=== PATIENT | female | born 1960 | race Caucasian/White ===

== ENCOUNTER 2022-01-29 15:10 | Emergency (ER) | payer OTHER ==
[2022-01-29 15:52] LABS: Urine Blood 2+ (Negative); Urine Glucose Negative (Negative); Urine Protein 1+ (Negative); Urine Specific Gravity 1.025 (1.005-1.030); Urine pH 6.5 (5.0-7.0)
[2022-01-29 16:51] LABS: SARS-COV-2 RT PCR NEGATIVE (NEGATIVE)
--- NOTE | 2022-01-29 16:55 | ER ---
Nurse's Notes [facility] Name: Joanna Berry Age: 61 yrs Sex: Female : 1960 Arrival Date: 01/29/2022 Time: 15:15 Bed Treatment Private MD: Diagnosis: Influenza due to identified novel influenza A virus Presentation: 01/29 15:50 Chief complaint: Patient states: fever, body aches, diarrhea, cough, lack of appetite kb3 x9 days. Coronavirus screen: Vaccine status: Patient reports receiving the 2nd dose of the covid vaccine. Client denies travel out of the [place] in the last 14 days. Ebola Screen: Patient negative for fever greater than or equal to 101.5 degrees Fahrenheit, and additional compatible Ebola Virus Disease symptoms Patient denies exposure to infectious person. Patient denies travel to an Ebola-affected area in the 21 days before illness onset. Initial Sepsis Screen: Does the patient meet any 2 criteria? No. Patient's initial sepsis screen is negative. Does the patient have a suspected source of infection? No. Patient's initial sepsis screen is negative. Risk Assessment: Do you want to hurt yourself or someone else? Patient reports no desire to harm self or others. Onset of symptoms was January 20, 2022. 15:50 Method Of Arrival: Ambulatory kb3 15:50 Acuity: NATTY 4 kb3 Triage Assessment: 15:52 General: Appears in no apparent distress. Behavior is calm, cooperative. Pain: kb3 Complains of pain in head, chest, abdomen, right arm, left arm, right leg and left leg Pain does not radiate. Pain currently is 7 out of 10 on a pain scale. Quality of pain is described as aching. Respiratory: Reports cough that is Breath sounds are clear. Historical: - Allergies: 15:52 No Known Allergies; kb3 - Home Meds: 15:52 None [Active]; kb3 - PMHx: 15:52 None; kb3 - PSHx: 15:52 section; kb3 - Immunization history:: Adult Immunizations up to date, Client reports receiving the 2nd dose of the Covid vaccine, Last tetanus immunization: up to date. - Social history:: Smoking status: Patient denies any tobacco usage or history of. Screenin:09 Abuse screen: Denies threats or abuse. Denies injuries from another. Nutritional kb3 screening: No deficits noted. Tuberculosis screening: No symptoms or risk factors identified. Fall Risk None identified. Assessment: 17:09 Reassessment: Patient appears in no apparent distress at this time. No changes from kb3 previously documented assessment. General: Appears in no apparent distress. comfortable, Behavior is calm, cooperative. Cardiovascular: Patient's skin is warm and dry. Respiratory: Reports cough that is Airway is patent. Vital Signs: 15:50 BP 146 / 96; Pulse 111; Resp 20; Temp 98.7; Pulse Ox 100% ; Weight 50.8 kg; Height 5 kb3 ft. 2 in. (157.48 cm); Pain 7/10; 17:15 BP 138 / 85; Pulse 98; Resp 20; Pulse Ox 99% ; kb3 15:50 Body Mass Index 20.48 (50.80 kg, 157.48 cm) kb3 ED Course: 15:15 Patient arrived in ED. jl7 15:26 Pat[facility] Bliss [facility]-C [facility]. kb 15:26 Foreign Martinez DO is Attending Physician. kb 15:52 Triage completed. kb3 15:52 Arm band placed on. kb3 15:59 COVID-19/FLU A+B Sent. mm9 17:09 Patient has correct armband on for positive identification. kb3 17:09 No provider procedures requiring assistance completed. Patient did not have IV access kb3 during this emergency room visit. Administered Medications: No medications were administered Medication: 17:09 VIS not applicable for this client. kb3 Outcome: 16:55 Discharge ordered by MD. kb 17:19 Discharged to home ambulatory. kb3 17:19 Condition: stable 17:19 Discharge instructions given to patient, family, Instructed on discharge instructions, follow up and referral plans. medication usage, Demonstrated understanding of instructions, follow-up care, medications. 17:19 Patient left the ED. kb3 Signatures: Patty Bliss FNP-C FNP-Ckb Leal, Jahala, RN RN jl7 Kristi Mitchell RN RN kb3 Leia De Leon mm9
--- NOTE | 2022-01-29 16:55 | EDPHYS ---
Physician Documentation [facility] Name: Joanna Berry Age: 61 yrs Sex: Female : 1960 Arrival Date: 01/29/2022 Time: 15:15 Bed Treatment Private MD: ED Physician Foreign Martinez HPI: 01/29 18:01 This 61 yrs old Female presents to ER via Ambulatory with complaints of Cough, kb Congestion, Diarrhea, Fever, General Weakness. 18:01 The patient or guardian reports cough, that is intermittent, described as mild, flu kb symptoms, low-grade fever, myalgias, no appetite. Onset: The symptoms/episode began/occurred 9 day(s) ago. Severity of symptoms: At their worst the symptoms were moderate, in the emergency department the symptoms are unchanged. Modifying factors: The symptoms are alleviated by nothing, the symptoms are aggravated by nothing. Associated signs and symptoms: Pertinent positives: diarrhea, fever, rhinorrhea. The patient has not experienced similar symptoms in the past. The patient has not recently seen a physician. Historical: - Allergies: 15:52 No Known Allergies; kb3 - Home Meds: 15:52 None [Active]; kb3 - PMHx: 15:52 None; kb3 - PSHx: 15:52 section; kb3 - Immunization history:: Adult Immunizations up to date, Client reports receiving the 2nd dose of the Covid vaccine, Last tetanus immunization: up to date. - Social history:: Smoking status: Patient denies any tobacco usage or history of. ROS: 18:00 Cardiovascular: Negative for chest pain, palpitations, and edema. kb 18:00 Constitutional: Positive for body aches, chills, fatigue, fever, malaise. 18:00 ENT: Positive for rhinorrhea, sinus congestion. 18:00 Respiratory: Positive for cough, Negative for dyspnea on exertion, hemoptysis, orthopnea, pleurisy, shortness of breath, sputum production, wheezing. 18:00 Abdomen/GI: Positive for diarrhea, Negative for abdominal pain, nausea and vomiting. 18:00 All other systems are negative. Exam: 18:00 Constitutional: This is a well developed, well nourished patient who is awake, alert, kb and in no acute distress. Head/Face: Normocephalic, atraumatic. ENT: Moist Mucous membranes Cardiovascular: Regular rate and rhythm with a normal S1 and S2. No gallops, murmurs, or rubs. No pulse deficits. Respiratory: Respirations even and unlabored. No increased work of breathing. Talking in full sentences Abdomen/GI: Soft, non-tender. No distention Skin: Warm, dry with normal turgor. Normal color. MS/ Extremity: Pulses equal, no cyanosis. Neurovascular intact. Full, normal range of motion. Neuro: Awake and alert, GCS 15, oriented to person, place, time, and situation. Moves all extremities. Normal gait. Psych: Awake, alert, with orientation to person, place and time. Behavior, mood, and affect are within normal limits. Vital Signs: 15:50 BP 146 / 96; Pulse 111; Resp 20; Temp 98.7; Pulse Ox 100% ; Weight 50.8 kg; Height 5 kb3 ft. 2 in. (157.48 cm); Pain 7/10; 17:15 BP 138 / 85; Pulse 98; Resp 20; Pulse Ox 99% ; kb3 15:50 Body Mass Index 20.48 (50.80 kg, 157.48 cm) kb3 MDM: 15:26 Patient medically screened. kb 17:59 Data reviewed: vital signs, nurses notes. Data interpreted: Pulse oximetry: on room air kb is 99 %. Interpretation: normal. Counseling: I had a detailed discussion with the patient and/or guardian regarding: the historical points, exam findings, and any diagnostic results supporting the discharge/admit diagnosis, lab results, the need for outpatient follow up, a family practitioner, to return to the emergency department if symptoms worsen or persist or if there are any questions or concerns that arise at home. ED course: Nontoxic in appearance. Tolerating po intake. 01/29 15:40 Order name: COVID-19/FLU A+B; Complete Time: 16:54 kb3 01/29 15:52 Order name: Urine Dipstick-Ancillary; Complete Time: 15:55 EDMS 01/29 15:40 Order name: Urine Dipstick-Ancillary (obtain specimen); Complete Time: 15:59 kb3 Administered Medications: No medications were administered Disposition: 19:17 Co-signature as Attending Physician, Foreign Martinez DO I was immediately available on-site ms3 in the Emergency Department for consultation in the care of the patient. Disposition Summary: 01/29/22 16:55 Discharge Ordered Location: Home kb Condition: Stable kb Diagnosis - Influenza due to identified novel influenza A virus kb Followup: kb - With: Emergency Department - When: As needed - Reason: Worsening of condition Followup: kb - With: Private Physician - When: 2 - 3 days - Reason: Recheck today's complaints, Continuance of care, Re-evaluation by your physician Discharge Instructions: - Discharge Summary Sheet kb - Influenza, Adult, [id number] kb Forms: - Medication Reconciliation Form kb - Thank You Letter kb - Antibiotic Education kb - Prescription Opioid Use kb - Work release form kb3 Signatures: Dispatcher [employer] EDMS Patty Bliss, CARLOSC KARISSA-Foreign Rockwell DO DO ms3 Kristi Mitchell, RN RN kb3
[2022-01-29 17:23] VITALS: TEMP 98.7
[2022-01-29 17:24] VITALS: BP 138/85; O2SAT 99
== END 2022-01-29 17:19 | disposition home or self-care (01) ==
LOC: ER 15:10
DX: J10.1 Influenza due to other identified influenza virus with other respiratory manifestations (principal); Z20.822 Contact with and (suspected) exposure to COVID-19
CPT/HCPCS: 81003; 0240U; 99283

== ENCOUNTER 2022-02-17 12:00 | Emergency (ER) | payer OTHER ==
[2022-02-17 13:53] LABS: SARS-COV-2 RT PCR NEGATIVE (NEGATIVE)
--- NOTE | 2022-02-17 14:00 | RAD REPORT ---
EXAM DESCRIPTION: RAD - Chest Single View - 02/17/2022 1:42 pm CLINICAL HISTORY: cough, fever Chest pain. COMPARISON: Chest Pa And Lat (2 Views) dated 12/10/2015 FINDINGS: Portable technique limits examination quality. Emphysematous changes are present. Reticular opacity is present in the left mid lung likely infiltrat e/developing pneumonia. The heart is normal in size. No displaced fractures. IMPRESSION: Left mid lung reticular opacity is noted likely representing developing pneumonia.
[2022-02-17] MEDS ORDERED: LIDOCAINE 1% MPF 2 ML AMPULE ONE (14:49)
[2022-02-17] MEDS ORDERED: CEFTRIAXONE 1000 MG/VIAL ONE (14:49)
--- NOTE | 2022-02-17 14:58 | EDPHYS ---
Physician Documentation [facility] Name: Joanna Berry Age: 61 yrs Sex: Female : 1960 Arrival Date: 02/17/2022 Time: 12:24 Bed 10 Private MD: ED Physician Silvano Ponce HPI: 02/17 12:33 This 61 yrs old Female presents to ER via Ambulatory with complaints of Flu Symptoms. jmm 12:33 The patient or guardian reports cough. Onset: The symptoms/episode began/occurred jmm gradually, 2 day(s) ago. This is a 61-year-old female with no known chronic medical conditions presents emerged part with complaints of cough beginning approximately 2 days ago. Patient was recently diagnosed with influenza approximately 3 weeks ago. Patient is concerned she may have developed influenza again. Patient is able to tolerate p.o.. Historical: - Allergies: 13:05 No Known Allergies; kb3 - Home Meds: 13:05 None [Active]; kb3 - PMHx: 13:05 None; kb3 - PSHx: 13:05 section; kb3 - Immunization history:: Adult Immunizations up to date, Client reports receiving the 2nd dose of the Covid vaccine. - Social history:: Smoking status: Patient denies any tobacco usage or history of. ROS: 12:33 Constitutional: Negative for fever, chills, and weight loss, Cardiovascular: Negative jmm for chest pain, palpitations, and edema. 12:33 Respiratory: Positive for cough. 12:33 All other systems are negative. Exam: 12:33 Constitutional: This is a well developed, well nourished patient who is awake, alert, jmm and in no acute distress. Head/Face: atraumatic. Eyes: EOMI, no conjunctival erythema appreciated ENT: Moist Mucus Membranes Neck: Trachea midline, Supple Chest/axilla: Normal chest wall appearance and motion. Cardiovascular: Regular rate and rhythm. No edema appreciated Respiratory: Normal respirations, no respiratory distress appreciated Abdomen/GI: Non distended Back: Normal ROM Skin: General appearance color normal MS/ Extremity: Moves all extremities, no obvious deformities appreciated, no edema noted to the lower extremities Neuro: Awake and alert Psych: Behavior is normal, Mood is normal, Patient is cooperative and pleasant Vital Signs: 13:03 BP 125 / 87; Pulse 94; Resp 20; Temp 97.7; Pulse Ox 98% ; Weight 49.9 kg; Height 5 ft. kb3 2 in. (157.48 cm); Pain 0/10; 13:03 Body Mass Index 20.12 (49.90 kg, 157.48 cm) kb3 MDM: 12:33 Patient medically screened. [facility] 14:56 Data reviewed: vital signs, nurses notes. Counseling: I had a detailed discussion with [facility] the patient and/or guardian regarding: the historical points, exam findings, and any diagnostic results supporting the discharge/admit diagnosis, radiology results, the need for outpatient follow up, to return to the emergency department if symptoms worsen or persist or if there are any questions or concerns that arise at home. 02/17 12:33 Order name: COVID-19/FLU A+B; Complete Time: 13:53 [facility] 02/17 12:33 Order name: Chest Single View XRAY; Complete Time: 14:01 [facility] Administered Medications: 14:52 Drug: Rocephin (cefTRIAXone) 1 grams Route: IM; Site: right ventrogluteal; kb3 15:10 Follow up: Response: No adverse reaction jl7 Disposition: 17:07 Co-signature as Attending Physician, Silvano Ponce MD I agree with the assessment and rt plan of care. Disposition Summary: 02/17/22 14:57 Discharge Ordered Location: Home [facility] Condition: Stable [facility] Diagnosis - Pneumonia [facility] Followup: [facility] - With: Private Physician - When: 2 - 3 days - Reason: Recheck today's complaints, Continuance of care, Re-evaluation by your physician Discharge Instructions: - Discharge Summary Sheet [facility] - Community-Acquired Pneumonia, Adult [facility] Forms: - Medication Reconciliation Form [facility] - Thank You Letter [facility] - Antibiotic Education [facility] - Prescription Opioid Use [facility] - Work release form jl7 Prescriptions: - cefdinir 300 mg Oral capsule - take 1 capsule by ORAL route every 12 hours; 20 capsule; Refills: 0, Product [facility] Selection Permitted - Zithromax Z-Marlo 250 mg Oral Tablet - take 1 tablet by ORAL route as directed for 5 days Day 1 - take two (2) tablets [facility] one time. Day 2, 3, 4 , 5 take one (1) tablet once daily.; 6 tablet; Refills: 0, Product Selection Permitted Signatures: Dispatcher [employer] Eric Ch PA PA jmm Bradberry, Kelly, RN RN kb3 Silvano Ponce MD MD rt Samantha Iqbal RN jl7
--- NOTE | 2022-02-17 14:58 | ER ---
Nurse's Notes [facility] Name: Joanna Berry Age: 61 yrs Sex: Female : 1960 Arrival Date: 02/17/2022 Time: 12:24 Bed 10 Private MD: Diagnosis: Pneumonia Presentation: 02/17 13:03 Chief complaint: Patient states: diagnosed with flu 3 weeks ago and felt better until 2 kb3 days ago when the cough and fatigue returned. Coronavirus screen: Vaccine status: Patient reports receiving the 2nd dose of the covid vaccine. Client denies travel out of the [place] in the last 14 days. Ebola Screen: Patient negative for fever greater than or equal to 101.5 degrees Fahrenheit, and additional compatible Ebola Virus Disease symptoms Patient denies exposure to infectious person. Patient denies travel to an Ebola-affected area in the 21 days before illness onset. Initial Sepsis Screen: Does the patient meet any 2 criteria? No. Patient's initial sepsis screen is negative. Does the patient have a suspected source of infection? No. Patient's initial sepsis screen is negative. Risk Assessment: Do you want to hurt yourself or someone else? Patient reports no desire to harm self or others. Onset of symptoms was February 15, 2022. 13:03 Method Of Arrival: Ambulatory kb3 13:03 Acuity: NATTY 4 kb3 Triage Assessment: 13:05 General: Appears in no apparent distress. Behavior is calm, cooperative. Pain: Denies kb3 pain. Historical: - Allergies: 13:05 No Known Allergies; kb3 - Home Meds: 13:05 None [Active]; kb3 - PMHx: 13:05 None; kb3 - PSHx: 13:05 section; kb3 - Immunization history:: Adult Immunizations up to date, Client reports receiving the 2nd dose of the Covid vaccine. - Social history:: Smoking status: Patient denies any tobacco usage or history of. Screenin:15 Abuse screen:. Nutritional screening: No deficits noted. Tuberculosis screening: No kb3 symptoms or risk factors identified. Fall Risk No fall in past 12 months (0 pts). No secondary diagnosis (0 pts). No IV (0 pts). Ambulatory Aid- None/Bed Rest/Nurse Assist (0 pts). Gait- Normal/Bed Rest/Wheelchair (0 pts) Mental Status- Oriented to own ability (0 pts). Total Schneider Fall Scale indicates No Risk (0-24 pts). 15:00 [facility] ED Fall Risk Assessment (Adult) History of falling in the last 3 months, jl7 including since admission No falls in past 3 months (0 pts) Confusion or Disorientation No (0 pts) Intoxicated or Sedated No (0 pts) Impaired Gait No (0 pts) Mobility Assist Device Used No (0 pt) Altered Elimination No (0 pt) Score/Fall Risk Level 0 - 2 = Low Risk Oriented to surroundings, Maintained a safe environment, Educated pt \T\ family on fall prevention, incl call for assistance when getting out of bed. Humpty Dumpty Scale Fall Assessment Tool (age< 18yrs) Gender Female (1 pt). Assessment: 13:15 General: see triage note. kb3 13:15 Respiratory: Reports cough that is Airway is patent Respiratory effort is even, kb3 unlabored, Breath sounds are clear. 14:50 General: Pt to room 10 for medication and discharge. kb3 Vital Signs: 13:03 BP 125 / 87; Pulse 94; Resp 20; Temp 97.7; Pulse Ox 98% ; Weight 49.9 kg; Height 5 ft. kb3 2 in. (157.48 cm); Pain 0/10; 13:03 Body Mass Index 20.12 (49.90 kg, 157.48 cm) kb3 ED Course: 12:24 Patient arrived in ED. rg4 12:26 Eric Hoskins PA [facility] [place] 12:26 Silvano Ponce MD is Attending Physician. [facility] [place] 13:05 Triage completed. kb3 13:05 Arm band placed on right wrist. kb3 13:06 COVID-19/FLU A+B Sent. kb3 13:15 Patient has correct armband on for positive identification. kb3 13:15 No provider procedures requiring assistance completed. Patient did not have IV access kb3 during this emergency room visit. 13:43 Chest Single View XRAY In Process Unspecified. EDMS 14:59 Kristi Mitchell, RN is Primary Nurse. kb3 Administered Medications: 14:52 Drug: Rocephin (cefTRIAXone) 1 grams Route: IM; Site: right ventrogluteal; kb3 15:10 Follow up: Response: No adverse reaction jl7 Medication: 13:15 VIS not applicable for this client. kb3 Outcome: 14:57 Discharge ordered by . annmarie 15:10 Discharged to home ambulatory. justin 15:10 Condition: stable 15:10 Discharge instructions given to patient, family, Instructed on discharge instructions, follow up and referral plans. medication usage, Demonstrated understanding of instructions, follow-up care, medications, Prescriptions given X 2. 15:11 Patient left the ED. jl7 Signatures: Dispatcher [employer] EDMS Eric Hoskins PA PA jmm Garcia, Rubi rg4 Samantha Iqbal, RN RN jl7 Kristi Mitchell, RN RN kb3
[2022-02-17 15:17] VITALS: BP 125/87; TEMP 97.7; O2SAT 98
== END 2022-02-17 15:11 | disposition home or self-care (01) ==
LOC: ER 12:00
DX: J18.9 Pneumonia, unspecified organism (principal); Z20.822 Contact with and (suspected) exposure to COVID-19
CPT/HCPCS: 0240U; 71045; 96372; 99284

== ENCOUNTER 2022-05-06 23:42 | Inpatient (IN) | payer OTHER ==
[2022-05-07] MEDS ORDERED: ALBUTEROL 2.5 MG/3 ML NEB SOL ONE (00:07)
[2022-05-07] MEDS ORDERED: METHYLPREDNISOLONE 125 MG INJ ONE (00:07)
[2022-05-07] MEDS ORDERED: IPRATROPIUM BROM 0.5MG/2.5ML ONE (00:07)
[2022-05-07 00:09] LABS: Absolute Lymphocytes (CBC) 2.2 K/uL (0.7-4.9); Hematocrit 38.9 % (36.0-45.0); Lymphocytes % 26.4 % (15.3-44.8); MCV 80.6 fL (80-100); MPV 8.5 fL (7.6-11.3); RBC Red Blood Cell Count 4.83 M/uL (3.86-4.86)
[2022-05-07 00:17] LABS: Protime INR 1.18
[2022-05-07] MEDS ORDERED: MORPHINE 2 MG/ML SYR ONE (00:25)
[2022-05-07] MEDS ORDERED: CEFTRIAXONE 1000 MG/VIAL ONE (00:25)
[2022-05-07] MEDS ORDERED: ACETAMINOPHEN 500 MG TAB ONE (00:25)
[2022-05-07] MEDS ORDERED: AZITHROMYCIN 500 MG INJ IVPB ONE (00:25)
[2022-05-07] MEDS ORDERED: NA CHLORIDE 0.9% 500 ML ONE (00:26)
[2022-05-07] MEDS ORDERED: NA CHLORIDE 0.9% 1,000 ML ONE (00:26)
[2022-05-07] MEDS ORDERED: NA CHLORIDE 0.9% 250 ML ONE ×3 (00:26→09:33)
[2022-05-07] MEDS ORDERED: NA CHLORIDE 0.9% 50 ML ONE (00:26)
[2022-05-07] MEDS ORDERED: ONDANSETRON 4 MG/2 ML VIAL ONE (00:26)
[2022-05-07 00:28] LABS: Albumin 3.7 g/dL (3.4-5.0); Bilirubin Total 0.8 mg/dL (0.2-1.0); Potassium 3.4 mmol/L (3.5-5.1); Protein, Total 7.7 g/dL (6.4-8.2)
[2022-05-07 00:56] LABS: Arterial Blood Carboxyhemoglob 0.5 % (0-1.5); Blood Gas Oxyhemoglobin 91.2 % (94-97)
[2022-05-07 01:29] LABS: SARS-COV-2 RT PCR NEGATIVE (NEGATIVE)
[2022-05-07] MEDS ORDERED: FUROSEMIDE 40 MG/4 ML VIAL ONE ×2 (01:44→08:32)
[2022-05-07] MEDS ORDERED: FUROSEMIDE 20 MG/ 2ML VIAL ONE (01:44)
[2022-05-07 02:09] LABS: Urine Blood 2+ (Negative); Urine Glucose Negative (Negative); Urine Protein 1+ (Negative); Urine Specific Gravity 1.015 (1.005-1.030); Urine pH 5.5 (5.0-7.0)
[2022-05-07 02:23] LABS: Urine Bacteria <20 /HPF (<20); Urine Mucus Slight /HPF (None Seen)
--- NOTE | 2022-05-07 02:42 | P.HP ---
Certification for Inpatient Patient admitted to: Inpatient With expected LOS: >2 Midnights Patient will require the following post-hospital care: None Practitioner: I am a practitioner with admitting privileges, knowledge of patient current condition, hospital course, and medical plan of care. Services: Services provided to patient in accordance with Admission requirements found in Title 42 Section 412.3 of the Code of Federal Regulations Patient History Date of Service: 05/07/22 Reason for admission: New onset CHF History of Present Illness: 61-year-old female with no significant past medical history presents to the emergency department for shortness of breath. She is found to be 85% on room air upon arrival to the emergency department. She reports increasing dyspnea over the course the last 1 month with associated orthopnea, dyspnea on exertion. She was evaluated in the emergency department her labs were significant for BNP 6353 potassium 3.4 lactic acid 1.3 mild elevations in AST, ALT, alk phos procalcitonin less than 0.05 ABG performed pH 7.3 PCO2 40.3 PO2 81.1 HCO3 19.4 CTA PE protocol was performed which revealed bilateral pleural effusions, pulmonary edema, cardiomegaly suggestive of acute CHF. Patient with oxygen requirement currently on nasal cannula to maintain saturations greater than 90% will admit for new onset CHF Allergies No Known Allergies Allergy (Unverified 12/10/15 17:44) - Past Medical/Surgical History -: None -: Psychosocial/ Personal History: Patient lives at home with her - Family History Father -: Diabetes - Social History Smoking Status: Former smoker Alcohol use: No CD- Drugs: No Caffeine use: Yes Place of Residence: Home Review of Systems 10-point ROS is otherwise unremarkable Respiratory: Shortness of Breath, SOB with Excertion Cardiovascular: Orthopnea Physical Examination - Physical Exam General: Alert, In no apparent distress, Oriented x3 HEENT: Atraumatic, PERRLA, Mucous membr. moist/pink, EOMI, Sclerae nonicteric Neck: Supple, 2+ carotid pulse no bruit, No LAD, Without JVD or thyroid abnormality Respiratory: Diminished, Crackles/rales Cardiovascular: Regular rate/rhythm, Normal S1 S2 Gastrointestinal: Normal bowel sounds, No tenderness Musculoskeletal: No tenderness Integumentary: No rashes Neurological: Normal gait, Normal speech, Normal strength at 5/5 x4 extr, Normal tone, Normal affect Lymphatics: No axilla or inguinal lymphadenopathy - Studies Laboratory Data (last 24 hrs) 05/06/22 23:58: PT 13.0 H, INR 1.18, APTT 29.3 05/06/22 23:58: Sodium 138, Potassium 3.4 L, BUN 14, Creatinine 1.00, Glucose 153 H, Total Bilirubin 0.8, AST 173 H, ALT 106 H, Alkaline Phosphatase 135 H 05/06/22 23:58: WBC 8.20, Hgb 12.3, Hct 38.9, Plt Count 322 Assessment and Plan - Plan Assessment: Acute hypoxic respiratory failure secondary to new onset CHFunknown EF Plan: Acute hypoxic respiratory failure secondary to new onset CHFunknown EF Continue IV diuresis with Lasix. Echocardiogram ordered, cardiology consulted. Beta-francesca, aspirin, statin ordered. Continue supplemental oxygen as needed, continue to wean to room air. Appreciate further input from cardiology. DVT PPX: Lovenox Code status: Full Discharge Plan: Home Plan to discharge in: 72 Hours - Advance Directives Does patient have a Living Will: No Does patient have a Durable POA for Healthcare: No - Code Status/Comfort Care Code Status Assessed: Yes (Full code) Critical Care: No Time Spent Managing Pts Care (In Minutes): 70
--- NOTE | 2022-05-07 03:11 | EDPHYS ---
Physician Documentation [facility] Name: Joanna Berry Age: 61 yrs Sex: Female : 1960 Arrival Date: 05/06/2022 Time: 23:44 Bed 7 Private MD: ED Physician Clark Ovalle HPI: 05/06 23:52 This 61 yrs old Female presents to ER via EMS with complaints of shortness of breath. sp4 23:52 61-year-old female with a history of emphysema and extensive tobacco use presents with sp4 EMS for acute worsening of shortness of breath, patient states her dyspnea has been progressive over the past 2 weeks at home associated with nonproductive cough and diaphoresis. Patient states that she had no fever or vomiting. Historical: - Allergies: 23:47 No Known Allergies; mb9 - Home Meds: 23:47 None [Active]; mb9 - PMHx: 23:47 None; mb9 - PSHx: 23:47 section; mb9 - Immunization history:: Adult Immunizations up to date. - Social history:: Smoking status: Patient denies any tobacco usage or history of. - Family history:: not pertinent. - Hospitalizations: : No recent hospitalization is reported. ROS: 05/07 02:59 Constitutional: Negative for fever, chills, and weight loss, positive for generalized sp4 weakness and fatigue also diaphoresis Eyes: Negative for injury, pain, redness, and discharge, ENT: Negative for injury, pain, and discharge, Neck: Negative for injury, pain, and swelling, Cardiovascular: Negative for chest pain, palpitations, and edema, positive for dyspnea on exertion Respiratory: Negative fo wheezing, and pleuritic chest pain, positive for shortness of breath, dyspnea on exertion, orthopnea, nonproductive cough Abdomen/GI: Negative for abdominal pain, nausea, vomiting, diarrhea, and constipation, Back: Negative for injury and pain, : Negative for injury, bleeding, discharge, and swelling, MS/Extremity: Negative for injury and deformity, Skin: Negative for injury, rash, and discoloration, Neuro: Negative for headache, weakness, numbness, tingling, and seizure, Psych: Negative for depression, anxiety, suicide ideation, homicidal ideation, and hallucinations, Allergy/Immunology: Negative for hives, rash, and allergies, Endocrine: Negative for neck swelling, polydipsia, polyuria, polyphagia, and marked weight changes, Hematologic/Lymphatic: Negative for swollen nodes, abnormal bleeding, and unusual bruising. Exam: 02:59 Constitutional: This is a well developed, frail thin female in moderate to severe sp4 distress with associated dyspnea, tachypnea, mild diaphoresis, mild to moderate respiratory distress. Patient is speaking in short sentences only Head/Face: Normocephalic, atraumatic. Eyes: Pupils equal round and reactive to light, extra-ocular motions intact. Lids and lashes normal. Conjunctiva and sclera are non-icteric and not injected. Cornea within normal limits. Periorbital areas with no swelling, redness, or edema. ENT: Nares patent. No nasal discharge, no septal abnormalities noted. Tympanic membranes are normal and external auditory canals are clear. Oropharynx with no redness, swelling, or masses, exudates, or evidence of obstruction, uvula midline. Mucous membranes moist. Neck: Trachea midline, no thyromegaly or masses palpated, and no cervical lymphadenopathy. Supple, full range of motion without nuchal rigidity, or vertebral point tenderness. No Meningismus. There is jugular venous distention Chest/axilla: Normal chest wall appearance and motion. Nontender with no deformity. No lesions are appreciated. Cardiovascular: Regular rhythm with a normal S1 and S2. No gallops, murmurs, or rubs. Normal PMI, No pulse deficits. Positive JVD, rapid tachycardia at the rate of 150, equal full peripheral pulses Respiratory: Lungs have equal breath sounds bilaterally, moderate to severe respiratory distress, bilateral crackles, decreased breath sounds bilateral bases, dyspnea, increased respiratory effort, retractions, and accessory muscle use. Abdomen/GI: Soft, non-tender, with normal bowel sounds. No distension or tympany. No guarding or rebound. No evidence of tenderness throughout. Back: No spinal tenderness. No costovertebral tenderness. Full range of motion. Skin: Warm, dry with normal turgor. Normal color with no rashes, no lesions, and no evidence of cellulitis. MS/ Extremity: Pulses equal, no cyanosis. Neurovascular intact. Full, normal range of motion. Neuro: Awake and alert, GCS 15, oriented to person, place, time, and situation. Cranial nerves II-XII grossly intact. Motor strength 5/5 in all extremities. Sensory grossly intact. Cerebellar exam normal. Normal gait. Psych: Awake, alert, with orientation to person, place and time. Behavior, mood, and affect are within normal limits. 02:59 ECG was reviewed by the Attending Physician. There is sinus tachycardia at the rate of sp4 112 and left atrial enlargement also left bundle branch block negative RI by Sgarbossa criteria appropriately discordant complexes Vital Signs: 05/06 23:44 BP 157 / 105; Pulse 131; Resp 33; Temp 97.4(O); Pulse Ox 85% on R/A; Weight 54.43 kg; mb9 Height 5 ft. 1 in. (154.94 cm); Pain 0/10; 23:49 Pulse Ox 96% on 3 lpm NC; mb9 03 00:47 BP 138 / 97; Pulse 123; Resp 28 S; Pulse Ox 97% on 4 lpm NC; as6 02:16 BP 149 / 99; Pulse 116; Resp 19; Pulse Ox 91% on 4 lpm NC; kd3 05/06 23:44 Body Mass Index 22.67 (54.43 kg, 154.94 cm) mb9 MDM: 00:08 Patient medically screened. sp4 02:59 Differential Diagnosis sepsis, flu, COPD, emphysema, congestive heart failure, sp4 pulmonary effusion, acute RI,. Data reviewed: vital signs, nurses notes, EMS record, lab test result(s), cardiac enzymes, CBC, electrolytes, hepatic panel, urinalysis, EKG, radiologic studies, CT scan. ED course: 61-year-old female with a history of prolonged smoking presents with worsening shortness of breath and nonproductive cough also tachycardia and rapid heart rate, patient states she has been getting diaphoretic and that she is not on home oxygen. Patient's EKG revealed left bundle branch block without signs of acute RI patient's work-up revealed unremarkable troponin, CT chest revealed no pulmonary embolus, also revealed cardiomegaly, moderate-sized bilateral pleural effusion and multifocal patchy infiltrates in the perihilar distribution indicative of CHF, patient at this time warrants admission for heart failure management and cardiology consult. 05/06 23:48 Order name: COVID-19/FLU A+B/RSV la1 05/06 23:55 Order name: Blood Culture Adult (2) sp4 05/06 23:55 Order name: CBC with Diff sp4 05/06 23:55 Order name: CMP sp4 05/06 23:55 Order name: Lactate w/ 2H reflex if indic. sp4 05/06 23:55 Order name: Protime (+inr) sp4 05/06 23:55 Order name: Ptt, Activated sp4 05/06 23:55 Order name: Urine Microscopic Only 4 05/06 23:55 Order name: ABG 4 05/06 23:55 Order name: EKG; Complete Time: 23:56 sp4 05/06 23:55 Order name: Accucheck; Complete Time: 00:19 sp4 05/06 23:55 Order name: Cardiac monitoring; Complete Time: 00:09 4 05/06 23:55 Order name: EKG - Nurse/Tech; Complete Time: 00:19 sp4 05/06 23:55 Order name: IV Saline Lock - Large Bore; Complete Time: 00:11 sp4 05/06 23:55 Order name: Labs collected and sent; Complete Time: 00:11 4 05/06 23:55 Order name: O2 Per Protocol; Complete Time: 00:09 sp4 05/06 23:55 Order name: O2 Sat Monitoring; Complete Time: 00:09 4 05/06 23:55 Order name: Vital Signs; Complete Time: 00:09 4 05/06 23:56 Order name: CT Chest For PE Angio 4 05/06 23:57 Order name: Procalcitonin 4 05/07 00:11 Order name: CBC with Automated Diff; Complete Time: 00:21 EDMS 05/07 00:17 Order name: Protime (+INR); Complete Time: 00:21 EDMS 05/07 00:17 Order name: PTT, Activated Partial Thromb; Complete Time: 00:21 EDMS 05/07 00:29 Order name: Comprehensive Metabolic Panel; Complete Time: 00:33 EDMS 05/07 00:29 Order name: Lactate w/ 2H reflex if indic.; Complete Time: 00:33 EDMS 05/07 00:56 Order name: BNP la1 05/07 01:05 Order name: ABG Arterial Blood Gas; Complete Time: 01:19 EDMS 05/07 01:16 Order name: Troponin High Sensitivity la1 05/07 01:29 Order name: COVID-19/FLU A+B/RSV; Complete Time: 01:34 EDMS 05/07 01:43 Order name: Procalcitonin; Complete Time: 03:11 EDMS 05/07 01:56 Order name: NT PRO-BNP; Complete Time: 03:11 EDMS 05/07 01:58 Order name: Troponin High Sensitivity; Complete Time: 03:11 EDMS 05/07 02:09 Order name: Urine Dipstick-Ancillary; Complete Time: 03:11 EDMS 05/07 02:23 Order name: Urine Microscopic Only; Complete Time: 03:11 EDMS 05/07 05:16 Order name: CBC with Automated Diff EDMS 05/07 05:29 Order name: Basic Metabolic Panel EDMS 05/07 05:29 Order name: Troponin High Sensitivity EDMS 05/07 11:35 Order name: Troponin High Sensitivity EDMS EC:59 Rate is 112 beats/min. Rhythm is regular, Sinus tachycardia. QRS [place] is Normal. sp4 Interpreted by me. Administered Medications: 01:10 Discontinued: NS 0.9% (30 ml/kg) 30 ml/kg IV at bolus once; Sepsis Protocol as6 00:03 CANCELLED (Duplicate Order): SOLU-Medrol (methylPREDNISolone sodium succinate) 125 mg sp4 IM once 00:10 Drug: SOLU-Medrol (methylPrednisoLONE) 125 mg Route: IVP; Site: right forearm; mb9 06:54 Follow up: Response: No adverse reaction as6 00:11 Drug: DuoNeb (albuterol 2.5 mg, ipratropium 0.5 mg) (3:1) (2.5 mg - 0.5 mg) 6 ml Route: mb9 Nebulizer; 06:55 Follow up: Response: No adverse reaction as6 00:30 Drug: Acetaminophen 1000 mg Route: PO; as6 06:56 Follow up: Response: No adverse reaction as6 00:30 Drug: NS 0.9% (30 ml/kg) 30 ml/kg Route: IV; Rate: bolus; Site: right forearm; as6 01:10 Follow up: Response: No adverse reaction; IV Status: Order to discontinue infusion; IV as6 Intake: 500ml 01:12 Follow up: IV Status: Order to discontinue infusion; IV Intake: 400ml kd3 00:40 Drug: Rocephin (cefTRIAXone) 1 grams Route: IV; Rate: bolus; Site: right forearm; as6 06:56 Follow up: Response: No adverse reaction; IV Status: Completed infusion; IV Intake: [id number] 00:47 Drug: Zofran (Ondansetron) 4 mg Route: IVP; Site: right forearm; as6 06:55 Follow up: Response: No adverse reaction as6 00:47 Drug: morphine 2 mg Route: IVP; Infused Over: 4 mins; Site: right forearm; as6 06:55 Follow up: Response: No adverse reaction as6 02:09 Drug: Lasix (furosemide) 60 mg Route: IVP; Site: left forearm; kd3 06:54 Follow up: Response: No adverse reaction as6 02:10 Drug: Zithromax (azithromycin) 500 mg Route: IVPB; Infused Over: 1 hrs; Site: left kd3 forearm; 06:55 Follow up: Response: No adverse reaction; IV Status: Completed infusion; IV Intake: as6 250ml Disposition Summary: 05/07/22 03:10 Hospitalization Ordered Hospitalization Status: Inpatient Admission sp4 Provider: Rei Gaytan sp4 Condition: Serious sp4 Problem: new sp4 Symptoms: have improved sp4 Bed/Room Type: Standard sp4 Location: Telemetry/MedSurg (Inpatient)(05/07/22 12:29) eb Room Assignment: 403(05/07/22 12:29) eb Diagnosis - Diastolic (congestive) heart failure sp4 - Sinus tachycardia, left bundle branch block, bilateral pleural effusion, acute sp4 pulmonary edema, flash pulmonary edema, emphysema, - Interstitial emphysema sp4 - COPD/ Chronic obstructive pulmonary disease, unspecified sp4 Forms: - Medication Reconciliation Form sp4 - SBAR form sp4 Signatures: Dispatcher [employer] EDMS Noe Arzola FNP-C FNP-Cla1 Meseret Wyman RN Danica Aguilar Ashby, RN RN as6 Татьяна Vickers RN RN kd3 Ofelia Willoughby RN RN mb9 Clark Ovalle MD MD sp4 Corrections: (The following items were deleted from the chart) 00:03 0304 23:57 SOLU-Medrol (methylPREDNISolone sodium succinate) 125 mg IM once ordered. sp4 sp4 05/07 00:03 00:03 SOLU-Medrol (methylPREDNISolone sodium succinate) 125 mg IM once ordered. sp4 sp4 03:50 03:10 Telemetry/MedSurg (Inpatient) sp4 cg 03:50 03:10 sp4 cg 12: 03:50 [facility] ER HOLD cg eb 12: 03:50 ERHOLD- cg eb
--- NOTE | 2022-05-07 03:11 | ER ---
Nurse's Notes [facility] Name: Joanna Berry Age: 61 yrs Sex: Female : 1960 Arrival Date: 05/06/2022 Time: 23:44 Bed 7 Private MD: Diagnosis: Diastolic (congestive) heart failure;Sinus tachycardia, left bundle branch block, bilateral pleural effusion, acute pulmonary edema, flash pulmonary edema, emphysema,;Interstitial emphysema;COPD/ Chronic obstructive pulmonary disease, unspecified Presentation: 05/06 23:44 Chief complaint: EMS states: "pt had pneumonia in February. Pt started having mb9 difficulty breathing and cough that started today. Pt was 90% on room air and increased to 96% on 2 L/min nasal cannula". Coronavirus screen: Vaccine status: Patient reports receiving the 2nd dose of the covid vaccine. Ebola Screen: No symptoms or risks identified at this time. Initial Sepsis Screen: Does the patient meet any 2 criteria? RR > 20 per min. HR > 90 bpm. Does the patient have a suspected source of infection? No. Patient's initial sepsis screen is negative. Risk Assessment: Do you want to hurt yourself or someone else? Patient reports no desire to harm self or others. Onset of symptoms was May 06, 2022. 23:44 Acuity: NATTY 2 mb9 23:44 Method Of Arrival: EMS: [facility] mb9 Triage Assessment: 23:47 General: Appears ill, Behavior is anxious. Pain: Denies pain. Neuro: Level of mb9 Consciousness is awake, alert, obeys commands, Oriented to person, place, time, situation, Appropriate for age. Cardiovascular: Rhythm is sinus tachycardia. Respiratory: Airway is patent Respiratory effort is even, labored, Respiratory pattern is tachypnea Breath sounds with crackles bilaterally. Derm: Skin is intact, Skin is dry, Skin is pale, Skin temperature is cool. Musculoskeletal: Range of motion: intact in all extremities. Historical: - Allergies: 23:47 No Known Allergies; mb9 - Home Meds: 23:47 None [Active]; mb9 - PMHx: 23:47 None; mb9 - PSHx: 23:47 section; mb9 - Immunization history:: Adult Immunizations up to date. - Social history:: Smoking status: Patient denies any tobacco usage or history of. - Family history:: not pertinent. - Hospitalizations: : No recent hospitalization is reported. Screenin:49 [facility] ED Fall Risk Assessment (Adult) History of falling in the last 3 months, mb9 including since admission No falls in past 3 months (0 pts). Abuse screen: Denies threats or abuse. Nutritional screening: No deficits noted. Tuberculosis screening: No symptoms or risk factors identified. Assessment: 23:48 Reassessment: See triage assessment. General: Smells of cigarette smoke. mb9 05/07 00:47 Cardiovascular:. Respiratory: Breath sounds with crackles. as6 Vital Signs: 05/06 23:44 BP 157 / 105; Pulse 131; Resp 33; Temp 97.4(O); Pulse Ox 85% on R/A; Weight 54.43 kg; mb9 Height 5 ft. 1 in. (154.94 cm); Pain 0/10; 23:49 Pulse Ox 96% on 3 lpm NC; mb9 05/07 00:47 BP 138 / 97; Pulse 123; Resp 28 S; Pulse Ox 97% on 4 lpm NC; as6 02:16 BP 149 / 99; Pulse 116; Resp 19; Pulse Ox 91% on 4 lpm NC; kd3 05/06 23:44 Body Mass Index 22.67 (54.43 kg, 154.94 cm) mb9 ED Course: 05/06 23:44 Patient arrived in ED. mb9 23:46 Triage completed. mb9 23:46 Arm band placed on. mb9 23:49 Placed in gown. Bed in low position. Call light in reach. Side rails up X 1. Client mb9 placed on continuous cardiac and pulse oximetry monitoring. NIBP monitoring applied. school bus monitor on. 23:49 No provider procedures requiring assistance completed. mb9 23:50 Inserted saline lock: 22 gauge in right forearm, using aseptic technique. mb9 23:52 Clark Ovalle MD is Attending Physician. sp4 05/07 00:11 CBC with Diff Sent. mb9 00:11 Ptt, Activated Sent. mb9 00:11 Protime (+inr) Sent. mb9 00:11 CMP Sent. mb9 00:18 Cristopher Balbuena, ROSEANN is Primary Nurse. as6 03:08 Rei Gaytan MD is Hospitalizing Provider. sp4 Administered Medications: 01:10 Discontinued: NS 0.9% (30 ml/kg) 30 ml/kg IV at bolus once; Sepsis Protocol as6 00:03 CANCELLED (Duplicate Order): SOLU-Medrol (methylPREDNISolone sodium succinate) 125 mg sp4 IM once 00:10 Drug: SOLU-Medrol (methylPrednisoLONE) 125 mg Route: IVP; Site: right forearm; mb9 06:54 Follow up: Response: No adverse reaction as6 00:11 Drug: DuoNeb (albuterol 2.5 mg, ipratropium 0.5 mg) (3:1) (2.5 mg - 0.5 mg) 6 ml Route: mb9 Nebulizer; 06:55 Follow up: Response: No adverse reaction as6 00:30 Drug: Acetaminophen 1000 mg Route: PO; as6 06:56 Follow up: Response: No adverse reaction as6 00:30 Drug: NS 0.9% (30 ml/kg) 30 ml/kg Route: IV; Rate: bolus; Site: right forearm; as6 01:10 Follow up: Response: No adverse reaction; IV Status: Order to discontinue infusion; IV as6 Intake: 500ml 01:12 Follow up: IV Status: Order to discontinue infusion; IV Intake: 400ml kd3 00:40 Drug: Rocephin (cefTRIAXone) 1 grams Route: IV; Rate: bolus; Site: right forearm; as6 06:56 Follow up: Response: No adverse reaction; IV Status: Completed infusion; IV Intake: 00huip4 00:47 Drug: Zofran (Ondansetron) 4 mg Route: IVP; Site: right forearm; as6 06:55 Follow up: Response: No adverse reaction as6 00:47 Drug: morphine 2 mg Route: IVP; Infused Over: 4 mins; Site: right forearm; as6 06:55 Follow up: Response: No adverse reaction as6 02:09 Drug: Lasix (furosemide) 60 mg Route: IVP; Site: left forearm; kd3 06:54 Follow up: Response: No adverse reaction as6 02:10 Drug: Zithromax (azithromycin) 500 mg Route: IVPB; Infused Over: 1 hrs; Site: left kd3 forearm; 06:55 Follow up: Response: No adverse reaction; IV Status: Completed infusion; IV Intake: as6 250ml Medication: 05/06 23:49 VIS not applicable for this client. mb9 Intake: 05/07 01:10 IV: 500ml; Total: 500ml. as6 01:12 IV: 400ml; Total: 900ml. kd3 06:55 IV: 250ml; Total: 1150ml. as6 06:56 IV: 50ml; Total: 1200ml. as6 Outcome: 03:10 Decision to Hospitalize by Provider. sp4 13:40 Patient left the ED. iw Signatures: Kristie Peters RN RN iw Cristopher Balbuena RN RN as6 Татьяна Vickers RN RN kd3 Ofelia Willoughby RN RN mb9 Clark Ovalle MD MD sp4
[2022-05-07] MEDS ORDERED: ONDANSETRON 4 MG/2 ML VIAL IV PRN (03:12)
[2022-05-07 03:17] VITALS: BMI 22.6
[2022-05-07] MEDS ORDERED: METOPROLOL TAR 25 MG TAB ONE (05:00)
[2022-05-07] MEDS: METOPROLOL TAR 25 MG TAB PO SCH ×2 (05:06→17:55)
[2022-05-07 05:07] LABS: Absolute Lymphocytes (CBC) 0.3 K/uL (0.7-4.9); Hematocrit 37.3 % (36.0-45.0); Lymphocytes % 3.9 % (15.3-44.8); MPV 8.5 fL (7.6-11.3)
[2022-05-07 05:29] LABS: Potassium 2.8 mmol/L (3.5-5.1); Troponin High Sensitivity 111.8 pg/mL (<58.9)
[2022-05-07] MEDS: KCL 20 MEQ/100 mL IVPB 20 MEQ/100 ML BAG IV SCH ×2 (06:00→08:00)
[2022-05-07] MEDS ORDERED: KCL 20 MEQ/100 mL IVPB 200 ML IV ONE (06:02)
[2022-05-07] MEDS ORDERED: ENOXAPARIN 40 MG/0.4 ML SQ ONE (08:32)
[2022-05-07] MEDS ORDERED: ASPIRIN EC 81 MG TAB PO ONE (08:32)
[2022-05-07] MEDS: ASPIRIN EC 81 MG TAB PO SCH (08:41)
[2022-05-07] MEDS ORDERED: ENOXAPARIN 40 MG/0.4 ML SQ SCH (09:00)
[2022-05-07] MEDS ORDERED: FUROSEMIDE 40 MG/4 ML VIAL IV SCH (09:00)
[2022-05-07] MEDS: POTASSIUM 25 MEQ EFFERV TAB PO SCH ×2 (11:00→20:37)
[2022-05-07] MEDS ORDERED: INFLUENZA VACCINE (for 6+ mo) 0.5 ML DOSE IMVAC ONE (12:00)
[2022-05-07] MEDS ORDERED: POTASSIUM 25 MEQ EFFERV TAB ONE (13:02)
[2022-05-07] MEDS: ENOXAPARIN 60 MG/0.6 ML SQ SCH (20:37)
[2022-05-07] MEDS ORDERED: ATORVASTATIN 40 MG TAB PO SCH (21:00)
[2022-05-08 03:35] LABS: Absolute Lymphocytes (CBC) 0.7 K/uL (0.7-4.9); Hematocrit 32.5 % (36.0-45.0); MCV 79.5 fL (80-100); MPV 8.9 fL (7.6-11.3); RBC Red Blood Cell Count 4.09 M/uL (3.86-4.86)
[2022-05-08] MEDS: METOPROLOL TAR 25 MG TAB PO SCH ×2 (06:00→16:21)
--- NOTE | 2022-05-08 07:45 | P.PN ---
Subjective Date of Service: 05/08/22 Chief Complaint: New onset CHF Subjective: Improving (Patient is doing much better shortness of breath has resolved is now able to lie in supine position) Review of Systems 10-point ROS is otherwise unremarkable Physical Examination - Vital Signs Temperature: 97.6 F Blood Pressure: 103/70 Pulse: 87 Respirations: 16 Pulse Ox (%): 97 - Physical Exam General: Alert, In no apparent distress, Oriented x3 Respiratory: Clear to auscultation bilaterally Cardiovascular: No edema, Normal S1 S2 Assessment And Plan - Current Problems (Diagnosis) (1) Congestive heart failure Current Visit: Yes Status: Acute Plan: New onset of congestive heart failure patient has improved significantly labs reviewed troponins were mildly elevated waiting cardiology consult and echocardiogram. Troponin may be elevated from congestive heart failure as there is no other risk factors for coronary artery disease denies any chest pain reduce Lasix to 20 mg daily spironolactone also once a day patient is on Lovenox I also ordered thyroid function test
--- NOTE | 2022-05-08 08:52 | RAD REPORT ---
[facility]08[facility] 8:43 am CLINICAL HISTORY: CHF COMPARISON: Chest Single View dated 02/17/2022; Chest Pa And Lat (2 Views) dated 12/10/2015 TECHNIQUE: Portable AP view of the chest. FINDINGS: Hyperinflation and chronic parenchymal interstitial coarsening similar to prior exam. Biap ical scarring. Developing bilateral airspace opacities most pronounced along the left mid to lower pro ng, as well as confluent opacities in the right apex, with bronchial wall thickening. Findings may re flect COPD exacerbation or superimposed pneumonia, versus superimposed central venous congestion. Dev eloping retrocardiac airspace opacity as well. No pneumothorax or effusion. The cardiomediastinal con tours are unremarkable. IMPRESSION: COPD exacerbation versus superimposed central venous congestion. Developing retrocardiac opacity, which raises concern for atelectasis or pneumonia.
[2022-05-08] MEDS ORDERED: FUROSEMIDE 40 MG TABLET PO SCH (09:00)
[2022-05-08] MEDS ORDERED: FUROSEMIDE 20 MG TABLET PO SCH (09:00)
[2022-05-08] MEDS ORDERED: FUROSEMIDE 40 MG/4 ML VIAL IV SCH (09:00)
[2022-05-08] MEDS: SPIRONOLACTONE 25 MG TABLET PO SCH (09:45)
[2022-05-08] MEDS: POTASSIUM 25 MEQ EFFERV TAB PO SCH ×2 (09:45→20:11)
[2022-05-08] MEDS: ENOXAPARIN 60 MG/0.6 ML SQ SCH ×2 (09:45→20:11)
[2022-05-08] MEDS: ASPIRIN EC 81 MG TAB PO SCH (09:45)
--- NOTE | 2022-05-08 11:43 | RAD REPORT ---
EXAM DESCRIPTION: CT - Chest For Pe Angio - 05/07/2022 6:51 am CLINICAL HISTORY: Chest pain. TECHNIQUE: Chest CTA. 2.0 mm reconstructed axial images were obtained. Coronal and sagittal reformat zeyad images were obtained. Coronal and sagittal MIP images were obtained. COMPARISON: None. DOSE OPTIMIZATION: This facility uses dose optimization techniques as appropriate to perform exams, including at least one of the following techniques: 1. Automated exposure control. 2. Adjustment of the mA and/or kV according to patient size (this includes techniques or standardized protocols for targeted exams where dose is matched to the indication/reason for exam, i.e. extremiti es or head). 3. Use of iterative reconstructive technique. FINDINGS: Lung [place]: There are mild patchy multifocal pulmonary infiltrates throughout the upper a nd lower lung bowden which are predominantly perihilar distribution.. There is moderately severe biapical pleural scarring. Mediastinal Structures: There is mild cardiomegaly. There is no evidence of aortic aneurysm or dissection. No pericardial effusion. No adenopathy. Pulmonary Arteries: Normal. Pleural Space: There are moderate-sized bilateral pleural effusions. Axillae: Normal. Upper Abdomen: Normal. Bony Structures: No suspicious lesions. IMPRESSION: 1. No evidence of pulmonary embolism. 2. Cardiomegaly, moderate-sized bilateral pleural effusions, and mild multifocal patchy infiltrates p redominantly in a perihilar distribution. Consider congestive heart failure. Electronically signed by: Alli Mahoney MD 05/07/2022 1:44 AM WOOL [employer]ER Due to temporary technical issues with the PACS/Fluency reporting system, reports are being signed by the in house radiologists without review as a courtesy to insure prompt reporting. The interpreting radiologist is fully responsible for the content of the report.
[2022-05-08] MEDS ORDERED: NA CHLORIDE 0.9% 250 ML IV PRN (12:13)
[2022-05-08 12:46] LABS: Thyroid Stimulating Hormone 1.25 uIU/mL (0.358-3.740)
--- NOTE | 2022-05-08 16:42 | EKG ---
Test Date: 2022-05-07 Test Time: 00:20:31 Information Assurance Officer: MEASUREMENT RESULTS: Intervals: Rate: 112 IN: 128 QRSD: 132 QT: 376 QTc: 513 [place]: P: 60 IN: 128 QRS: -24 T: 116 INTERPRETIVE STATEMENTS: Sinus tachycardia Possible Left atrial enlargement Left bundle branch block Abnormal ECG No previous ECG available for comparison Electronically Signed On 05-08-22 16:37:57 STEAM PRESSURE CHAMBER OPERATOR by Siddhartha Amaro
--- NOTE | 2022-05-08 22:08 | CON ---
Date of Consultation: 05/08/2022 Reason For Consultation: Questionable new onset heart failure. History Of Present Illness: A 61-year-old female with history of COPD presented to the emergency [facility] with shortness of breath, was hypoxic at 85% and she has been having progressive shortness of breat h over the past month, but has also orthopnea and mild lower extremity edema. Denies having any ches t pain. No nausea, vomiting, or diarrhea. Past Medical History: None. Medications: Reviewed. Refer reconciliation sheet for detailed list. Allergies: NO KNOWN DRUG ALLERGIES. Family History: No premature coronary artery disease or cancer. Social History: An ex-smoker. Does not drink or use any drugs. Review of Systems: All systems reviewed and they were negative except as mentioned in HPI. Physical Examination: Vital Signs: Reviewed. Head and Neck: Pupils are equal and reactive to light. Intact eye movements. No JVD. No cervical lymphadenopathy. Neck is supple. Thyroid is not enlarged. Lungs: Decreased breathing sounds with no accessory muscle use or muscle retraction. Heart: Irregular. No extra sounds. Abdomen: Soft, nontender. Bowel sounds positive. No organomegaly. No masses or hernia. No rigidi ty or rebound. Extremities: Trace edema. No clubbing or cyanosis. Intact pulses. Skin: No rash. Neurologic: Alert, awake, and oriented x3. No acute focal deficits appreciated. Lymph Nodes: No cervical or axillary lymphadenopathy. Investigations: BUN 21 and creatinine 0.7. Troponin was 18.7, then 111, and then 84. CTA of the est showed congestive heart failure, but no PE. On the chest x-ray, there is a COPD pattern, less mi ld venous congestion. Assessment/recommendations: 1.Shortness of breath, then acute hypoxic respiratory failure, probably in part to chronic obstructi ve pulmonary disease exacerbation and NT-proBNP is elevated, so definitely she has a component of con gestive heart failure. She was given one dose of Lasix IV. We will monitor clinical status. Please obtain an echo on her and further recommendations to follow accordingly. 2.Elevated troponin. She has a long-standing history of smoking with chronic obstructive pulmonary disease. Obtain an exercise nuclear stress test to further evaluate. SR/MODL Voice ID: [id number] Report ID: [id number]
[2022-05-09 03:30] LABS: Absolute Lymphocytes (CBC) 1.7 K/uL (0.7-4.9); Hematocrit 31.8 % (36.0-45.0); Lymphocytes % 25.8 % (15.3-44.8); MCV 79.7 fL (80-100); MPV 9.1 fL (7.6-11.3); RBC Red Blood Cell Count 3.98 M/uL (3.86-4.86)
[2022-05-09 03:49] LABS: Potassium 4.6 mmol/L (3.5-5.1)
[2022-05-09] MEDS: METOPROLOL TAR 25 MG TAB PO SCH ×2 (05:45→17:56)
[2022-05-09] MEDS ORDERED: REGADENOSON 0.4 MG/5 ML SYR IV ONE (07:14)
--- NOTE | 2022-05-09 07:40 | RAD REPORT ---
EXAM DESCRIPTION: Katharine Single View05/09/2022 5:51 am CLINICAL HISTORY: Shortness of breath COMPARISON: May 08, 2022 FINDINGS: Bilateral upper lobe opacities unchanged. Mild additional bilateral pulmonary opacities are unchanged. The heart is mildly enlarged. Small pleural effusions IMPRESSION: Bilateral upper lobe opacities are unchanged probably scarring Mild bilateral pulmonary opacities are unchanged which could represent pulmonary edema or pneumonia
[2022-05-09] MEDS: POTASSIUM 25 MEQ EFFERV TAB PO SCH ×2 (09:00→20:04)
[2022-05-09] MEDS: ASPIRIN EC 81 MG TAB PO SCH (09:00)
[2022-05-09] MEDS: SPIRONOLACTONE 25 MG TABLET PO SCH (09:00)
[2022-05-09] MEDS: ENOXAPARIN 60 MG/0.6 ML SQ SCH ×2 (09:00→20:00)
--- NOTE | 2022-05-09 10:44 | RAD REPORT ---
EXAM DESCRIPTION: NM - Rest Stress Cardiac Imaging - 05/09/2022 9:47 am CLINICAL HISTORY: ELEVATED TROPONIN COMPARISON: None. TECHNIQUE: The patient was administered 10.7 mCi of Tc 99m Sestamibi prior to resting SPECT imaging of the heart. The patient was then administered 31.9 mCi of Tc 99m Sestamibi following exercise or ph armacologic stress. Multiplanar SPECT images were reviewed. FINDINGS: Moderate area of diminished radiotracer activity involves the anterior apical left ventric ular myocardium on stress sequences. Moderate area of diminished radiotracer activity involves the inferior left ventricular myocardium on stress sequences Rest images demonstrate normal radiotracer within the inferior left rib myocardium. There is partial reaccumulation of radiotracer within the anterior apical left ventricular myocardium The left ventricular ejection fraction equals 21% IMPRESSION: Moderate reversible perfusion defect inferior left ventricular myocardium likely indicat ing stress-induced ischemia Moderate partially reversible perfusion defect anterior apical left ventricular myocardium may indica te an infarct with radha-infarct ischemia
--- NOTE | 2022-05-09 17:09 | P.PN ---
Subjective Date of Service: 05/09/22 Chief Complaint: New onset CHF Patient reports significant improvement in her shortness of breath. At the moment denies shortness of breath at rest but reports dyspnea on exertion. She denies any chest pain. Physical Examination - Vital Signs Temperature: 97.5 F Blood Pressure: 133/79 Pulse: 98 Respirations: 19 Pulse Ox (%): 100 - Physical Exam General: Alert, In no apparent distress, Oriented x3 HEENT: Mucous membr. moist/pink Neck: Supple, JVD not distended Respiratory: Clear to auscultation bilaterally, Normal air movement Cardiovascular: No edema, Regular rate/rhythm, Normal S1 S2, No murmurs Gastrointestinal: Soft and benign, Non-distended, No tenderness Musculoskeletal: No swelling, No tenderness Integumentary: No rashes, No cyanosis Neurological: Normal speech, Normal strength at 5/5 x4 extr Assessment And Plan - Current Problems (Diagnosis) (1) Acute systolic heart failure Current Visit: Yes Status: Acute (2) Coronary artery disease Current Visit: Yes Status: Acute - Plan Patient with new onset heart failure. Symptoms improved. Nuclear stress test shows reversible ischemia. Cardiology Dr. Amaro is following. Dr. Amaro informed of the positive stress and he will reevaluate. Aspirin Lisinopril Continue Aldactone. On metoprolol. Activity as tolerated.
[2022-05-10] MEDS: METOPROLOL TAR 25 MG TAB PO SCH ×2 (06:00→18:00)
--- NOTE | 2022-05-10 07:04 | ECHO ---
HEIGHT: 5 ft 1 in WEIGHT: 119 lb 15.962 oz DATE OF STUDY: 05/09/[address]: Noe Arzola NP 2-DIMENSIONAL: YES M.MODE: YES DOPPLER: YES COLOR FLOW: YES TDS: PORTABLE: YES DEFINITY: BUBBLE STUDY: DIAGNOSIS: NEW ONSET CONGESTIVE HEART FAILURE CARDIAC HISTORY: CATHERIZATION: NO SURGERY: NO PROSTHETIC VALVE: NO PACEMAKER: NO MEASUREMENTS (cm) DIASTOLIC (NORMALS) SYSTOLIC (NORMALS) IVSd 0.7 (0.6-1.2) LA Diam 2.7 (1.9-4.0) LVEF 20% LVIDd 5.3 (3.5-5.7) LVIDs 4.8 (2.0-3.5) %FS 9% LVPWd 0.8 (0.6-1.2) Ao Diam 2.1 (2.0-3.7) 2 DIMENSIONAL ASSESSMENT: RIGHT ATRIUM: NORMAL LEFT ATRIUM: NORMAL RIGHT VENTRICLE: NORMAL LEFT VENTRICLE: DILATED LEFT VENTRICLE TRICUSPID VALVE: MILD TRICUSPID REGURGITATION MITRAL VALVE: MODERATE TO SEVERE MITRAL REGURGITATION PULMONIC VALVE: NORMAL AORTIC VALVE: NORMAL PERICARDIAL EFFUSION: SMALL AORTIC ROOT: NORMAL LEFT VENTRICULAR WALL MOTION: SEVERE GLOBAL HYPOKINESIS DOPPLER/COLOR FLOW: SEE BELOW COMMENTS: 1. SEVERELY DEPRESSED LEFT VENTRICULAR EJECTION FRACTION 20-25% 2. SEVERE GLOBAL HYPOKINESIS 3. MODERATE TO SEVERE MITRAL REGURGITATION 4. MILD TRICUSPID REGURGITATION 5. SMALL PERICARDIAL EFFUSION 6. LARGE PLEURAL EFFUSION TECHNOLOGIST: JERRELL FAITH
[2022-05-10] MEDS: POTASSIUM 25 MEQ EFFERV TAB PO SCH (07:08)
[2022-05-10] MEDS: SPIRONOLACTONE 25 MG TABLET PO SCH (07:08)
[2022-05-10] MEDS: ENOXAPARIN 60 MG/0.6 ML SQ SCH ×2 (07:08→20:36)
[2022-05-10] MEDS: ASPIRIN EC 81 MG TAB PO SCH (07:08)
--- NOTE | 2022-05-10 07:41 | TREADPHA ---
DX: ELEVATED TROPONIN Date of Study: 05/09/2022 Ht: 5' 1 " Wt: 119 lb 15.962 oz Consulting Physician: KADIE MEDICATIONS: ASPIRIN, LOVENOX, LOPRESSOR, ZOFRAN, K-LYTE, ALDACTONE HISTORY: 61 YEAR OLD FEMALE WITH COMPLAINTS OF CHEST PAIN. HISTORY OF , NON SMOKER, NON DRINKER PHYSICIAL EXAMINATION: RESTING B.P.: 133/87 RESTING H.R.: 87 RESTING EKG: NORMAL SINUS RHYTHM WITH LEFT VENTRICULAR HYPERTROPHY PROTOCOL: PHARMACOLOGIC EXERCISE TIME: 3:30 B.P. AT [facility] STRESS: 133/86 IMPRESSION: LEXISCAN INJECTED, FOLLOWED BY CARDIOLITE PER PROTOCOL. SEE NUCLEAR MEDICINE REPORT. NO SUPRAVENTRICULAR TACHYCARIA, VENTRICULAR TACHYCARDIA, PREMATURE VENTRICULAR COMPLEXES. PATIENT HAD OCCASIONAL PREMATURE ATRIAL COMPLEXES THROUGHOUT PROCEDURE. PATIENT REPORTS NO CHEST PAIN. ELECTROCARDIOGRAM IS NOT DIAGNOSTIC DUE TO ABNORMAL BASELINE.
--- NOTE | 2022-05-10 16:20 | P.PN ---
Subjective Date of Service: 05/10/22 Chief Complaint: New onset CHF Patient reports shortness of breath with exertion. No shortness of breath at rest. Physical Examination - Vital Signs Temperature: 97.9 F Blood Pressure: 126/79 Pulse: 87 Respirations: 16 Pulse Ox (%): 96 - Physical Exam General: Alert, In no apparent distress, Oriented x3 HEENT: Mucous membr. moist/pink Neck: JVD not distended Respiratory: Clear to auscultation bilaterally, Diminished (Bilateral bases) Cardiovascular: No edema, Regular rate/rhythm, Normal S1 S2 Gastrointestinal: Normal bowel sounds, Soft and benign, Non-distended, No tenderness Musculoskeletal: No swelling Integumentary: No rashes Neurological: Normal strength at 5/5 x4 extr Assessment And Plan - Current Problems (Diagnosis) (1) Acute systolic heart failure Current Visit: Yes Status: Acute (2) Coronary artery disease Current Visit: Yes Status: Acute - Plan Patient with new onset heart failure. Echocardiogram shows EF of 20 to 25% Patient also has bilateral pleural effusion Shortness of breath significantly improved Nuclear stress test shows reversible ischemia. Cardiology Dr. Amaro is following and patient plan for cardiac catheterization today. Continue aspirin Entresto per cardiology recommendation. IV Lasix to treat CHF decompensation and pleural effusion. Continue Aldactone. On metoprolol. Activity as tolerated.
[2022-05-10] MEDS ORDERED: FENTANYL CITR 100 MCG/2 ML ONE (17:14)
[2022-05-10] MEDS ORDERED: HEPARIN 10,000 UNIT/10 ML VIAL IV ONE (17:15)
[2022-05-10] MEDS ORDERED: TICAGRELOR 90 MG TABLET PO ONE (17:15)
[2022-05-10] MEDS ORDERED: ATROPINE SULF 1 MG/10 ML SYR IV ONE (17:15)
[2022-05-10] MEDS ORDERED: ASPIRIN 325 MG TAB ONE (17:15)
[2022-05-10] MEDS ORDERED: CLOPIDOGREL 75 MG TABLET ONE (17:15)
[2022-05-10] MEDS ORDERED: MIDAZOLAM HCL 2 MG/2 ML INJ ONE (17:15)
[2022-05-10] MEDS ORDERED: NA CHLORIDE 0.9% 1,000 ML ONE (17:21)
--- NOTE | 2022-05-10 19:08 | PN ---
Date of Progress Note: 05/09/2022 Subjective: Seen by bedside. No chest pain. Has some orthopnea and shortness of breath on exertion . No nausea, vomiting, or diarrhea. All other systems were reviewed, they were negative. Physical Examination: Vital Signs: Reviewed. Head and Neck: Pupils are equal, reactive to light. Intact eye movements. Mild JVD elevation. Nec k is supple. Thyroid is not enlarged. Lungs: Clear to auscultation bilaterally. No rhonchi, wheezing, or crackles. No accessory muscle u se. Heart: Regular rate and rhythm. No extra sounds. Abdomen: Soft, nontender. Bowel sounds positive. No organomegaly. No masses or hernia. No rigidi ty or rebound. Extremities: No clubbing or cyanosis. Intact pulses. Trace edema. Skin: No rash. Neurologic: Alert, awake, oriented x3. No acute focal deficits appreciated. Investigations: BUN 26, creatinine 0.8, and hemoglobin is 10.4. The nuclear stress test showed reve rsible ischemia of the anterior wall. Assessment And Recommendation: 1.Elevated troponin with abnormal stress test, likely non-ST elevation myocardial infarction. Keep n.p.o. past midnight. Plan for coronary angiogram tomorrow. IV heparin. 2.Acute congestive heart failure exacerbation. On echo, her ejection fraction is 20% to 25%. Recom mend IV Lasix, and keep n.p.o. for coronary angiogram tomorrow. 3.Large pleural effusion. Recommend pulmonary evaluation for possible thoracentesis. Obtain a nonc ontrast CT to further assess. SR/MODL Voice ID: [id number] Report ID: [id number]
--- NOTE | 2022-05-10 20:46 | PN ---
Date of Progress Note: 05/10/2022 Subjective: Seen by bedside. Remains stable. No chest pain. Review of Systems: No chest pain, shortness of breath, orthopnea, cough, nausea, vomiting, or diarrhea. All other syste ms were reviewed, they were negative. Physical Examination: Vital Signs: Reviewed. Head and Neck: Pupils are equal, reactive to light. Intact eye movements. No JVD. No cervical lym phadenopathy. Neck is supple. Thyroid is not enlarged. Lungs: Decreased breathing sounds with rhonchi bilaterally. No accessory muscle use or muscle retra ction. Heart: Regular rate and rhythm. No extra sounds. Abdomen: Soft, nontender. Bowel sounds positive. No organomegaly. No masses or hernia. No rigidi ty or rebound. Extremities: Trace edema bilaterally. No clubbing or cyanosis. Intact pulses. Skin: No rashes. Neurologic: Alert, awake, and oriented x3. No acute focal deficits appreciated. Investigations: BUN 18, creatinine 0.79. Assessment And Recommendation: 1.Elevated troponin with abnormal stress test. She is n.p.o., plan for coronary angiogram today. 2.Severe systolic heart failure. Obtain coronary angiogram to evaluate the etiology and if coronary angiogram is negative, then we will plan to continue the guideline directed medical therapy for heart failure including beta-francesca and Entresto to be introduced during this hospital stay if the b lood pressure allows. SR/MODL Voice ID: [id number] Report ID: [id number]
--- NOTE | 2022-05-11 02:59 | OP ---
Date of Procedure: 05/10/2022 Surgeon: SILVIA ENGLE Procedures Performed: 1.Selective coronary angiogram. 2.Left heart catheterization. Indication: 1.Non ST-elevation myocardial infarction. 2.A new drop in ejection fraction. Systolic function is about 25%. Access: Right femoral artery 6-Mauritian, closed with StarClose. Complications: None. Bleeding: Less than 20 mL. Anesthesia: Total sedation time was 15 minutes. Description Of Procedure: After risks, benefits, and alternatives were explained, patient agreed to the procedure and signed informed consent. The patient was brought into the cardiac catheterization laboratory, prepped and draped in usual sterile fashion and then I accessed the right femoral artery using micropuncture kit, fluoroscopy, and ultrasound guidance, and a 6-Mauritian Douglas sheath and too k a 6-Mauritian JL-4 catheter and the aortic root over a J-wire, engaged left main, took standard views and then exchanged for a 6-Mauritian JR4 catheter, engaged the RCA, took 7 views and the JR4 catheter ov er the wire was pushed into the LV, measured the LVEDP, and pullback not recorded any gradient. I th en removed the catheter and sheath and StarClose was used for closure with good hemostasis. Findings: 1.Left main: Large and normal. 2.LAD: Large and normal. Normal diagonal branches. 3.Left circumflex: Normal. 4.RCA: It is large and normal. 5.Elevated LVEDP of 27 mmHg. Conclusion: 1.Normal coronary arteries. This is nonischemic cardiomyopathy. 2.Elevated LVEDP. Recommendation: Guideline-directed medical therapy for congestive heart failure. SR/MODL Voice ID: [id number] Report ID: [id number]
[2022-05-11] MEDS: METOPROLOL TAR 25 MG TAB PO SCH (05:28)
[2022-05-11 08:03] VITALS: BP 104/66; TEMP 98.3
--- NOTE | 2022-05-11 08:38 | P.DS ---
Admission Date: 05/07/22 Discharge Date: 05/11/22 Disposition: ROUTINE DISCHARGE Discharge Condition: FAIR Reason for Admission: New onset CHF - Problems (1) Acute systolic heart failure Status: Acute (2) Coronary artery disease Status: Acute Brief History of Present Illness: 61-year-old female with no significant past medical history presents to the emergency department for shortness of breath. She is found to be 85% on room air upon arrival to the emergency department. She reported progressive dyspnea over the course of the last 1 month with associated orthopnea, dyspnea on exertion. She was evaluated in the emergency department and her labs were significant for BNP 6353 potassium 3.4 lactic acid 1.3 mild elevations in AST, ALT, alk phos procalcitonin less than 0.05. ABG performed pH 7.3 PCO2 40.3 PO2 81.1 HCO3 19.4 CTA PE protocol was performed which revealed bilateral pleural effusions, pulmonary edema, cardiomegaly suggestive of acute CHF. Patient admitted for further management of acute CHF with hypoxia. Hospital Course: Patient admitted to the medical floor and treated with IV Lasix. She was seen in consultation by cardiology-Dr. Amaro. Nuclear stress test were done which showed stress-induced ischemia. Patient underwent cardiac catheterization which was unremarkable. No coronary artery occlusion to warrant intervention Patient diagnosed with nonischemic cardiomyopathy. Cardiology recommended Entresto, patient is on Coreg. She appears compensated for CHF. She also has significant peripheral arterial disease. She is deemed clinically stable for discharge. She is prescribed maintenance Lasix. She will follow-up with Dr. Amaro as outpatient. Vital Signs/Physical Exam: Temp Pulse Resp BP Pulse Ox 98.3 F 78 16 104/66 98 05/11/22 08:00 05/11/22 08:00 05/11/22 08:00 05/11/22 08:00 05/11/22 08:00 General: Alert, In no apparent distress, Oriented x3 HEENT: Mucous membr. moist/pink Neck: Supple, JVD not distended Respiratory: Clear to auscultation bilaterally, Normal air movement Cardiovascular: No edema, Regular rate/rhythm, Normal S1 S2 Gastrointestinal: Soft and benign, Non-distended Musculoskeletal: No swelling, No tenderness Integumentary: No rashes Neurological: Normal strength at 5/5 x4 extr Laboratory Data at Discharge: WBC 6.60 K/uL (4.3-10.9) 05/09/22 03:14 Hgb 10.4 g/dL (12.0-15.0) L 05/09/22 03:14 Hct 31.8 % (36.0-45.0) L 05/09/22 03:14 Plt Count 154 K/uL (152-406) 05/09/22 03:14 PT 13.0 SECONDS (9.5-12.5) H 05/06/22 23:58 INR 1.18 05/06/22 23:58 APTT 29.3 SECONDS (24.3-36.9) 05/06/22 23:58 Sodium 137 mmol/L (136-145) 05/10/22 05:31 Potassium 5.0 mmol/L (3.5-5.1) 05/10/22 05:31 BUN 18 mg/dL (7-18) 05/10/22 05:31 Creatinine 0.79 mg/dL (0.55-1.02) 05/10/22 05:31 Glucose 92 mg/dL (74-106) 05/10/22 05:31 Total Bilirubin 0.8 mg/dL (0.2-1.0) 05/06/22 23:58 AST 173 U/L (15-37) H 05/06/22 23:58 ALT 106 U/L (13-56) H 05/06/22 23:58 Alkaline Phosphatase 135 U/L (45-117) H 05/06/22 23:58 Triglycerides 76 mg/dL (<150) 05/08/22 03:24 Cholesterol 113 mg/dL (<200) 05/08/22 03:24 HDL Cholesterol 53 mg/dL (40-60) 05/08/22 03:24 Cholesterol/HDL Ratio 2.13 05/08/22 03:24 Home Medications: Aspirin [Aspirin EC 81 MG] 81 mg PO DAILY #30 tab 05/11/22 Atorvastatin Calcium [Lipitor] 20 mg PO BEDTIME #30 tab 05/11/22 Clopidogrel Bisulfate [Plavix] 75 mg PO DAILY #30 tab 05/11/22 Furosemide [Lasix] 20 mg PO DAILY #30 tab 05/11/22 Metoprolol Tartrate [Lopressor*] 25 mg PO BID 6AM 6PM #60 tab 03/09/23 Sacubitril/Valsartan [Entresto 24 mg-26 mg Tablet] 1 each PO BID #60 tab 05/11/22 Spironolactone [Aldactone*] 25 mg PO DAILY #30 tab 05/11/22 New Medications: Spironolactone [Aldactone*] 25 mg PO DAILY #30 tab Aspirin [Aspirin EC 81 MG] 81 mg PO DAILY #30 tab Sacubitril/Valsartan [Entresto 24 mg-26 mg Tablet] 1 each PO BID #60 tab Furosemide [Lasix] 20 mg PO DAILY #30 tab Atorvastatin Calcium [Lipitor] 20 mg PO BEDTIME #30 tab Metoprolol Tartrate [Lopressor*] 25 mg PO BID 6AM 6PM #60 tab Clopidogrel Bisulfate [Plavix] 75 mg PO DAILY #30 tab Diet: AHA Activity: Ad carmita Followup: Siddhartha Amaro MD [ACTIVE - CAN ADMIT] - 1-2 Weeks (Call to schedule appointment) Time spent managing pt's care (in minutes): 36
[2022-05-11] MEDS: ENOXAPARIN 60 MG/0.6 ML SQ SCH (08:43)
[2022-05-11] MEDS: SPIRONOLACTONE 25 MG TABLET PO SCH (08:43)
[2022-05-11] MEDS: ASPIRIN EC 81 MG TAB PO SCH (08:45)
[2022-05-11 10:00] VITALS: O2SAT 100
== END 2022-05-11 10:21 | disposition home or self-care (01) | DRG 286 ==
LOC: ER 23:42 → ERHOLD 05-07 02:03 → 4TH 05-07 12:56
PROVIDERS: ADMIT Internal Medicine Sleep Medicine; ATTEND Internal Medicine
PROC: 4A023N7 Measurement of Cardiac Sampling and Pressure, Left Heart, Percutaneous Approach (ICD-10-PCS; principal; 2022-05-10)
PROC: B2111ZZ Fluoroscopy of Multiple Coronary Arteries using Low Osmolar Contrast (ICD-10-PCS; 2022-05-10)
DX: I50.21 Acute systolic (congestive) heart failure (principal); J96.01 Acute respiratory failure with hypoxia; J98.2 Interstitial emphysema; I44.7 Left bundle-branch block, unspecified; I25.5 Ischemic cardiomyopathy; I25.10 Atherosclerotic heart disease of native coronary artery without angina pectoris; R77.8 Other specified abnormalities of plasma proteins; Z79.82 Long term (current) use of aspirin; Z79.02 Long term (current) use of antithrombotics/antiplatelets; Z87.891 Personal history of nicotine dependence; Z79.899 Other long term (current) drug therapy; Z20.822 Contact with and (suspected) exposure to COVID-19
CPT/HCPCS: 0241U; 36415; 71045; 71275; 76937; 78452; 80048; 80053; 80061; 81003; 81015; 82805; 83605; 83880; 84132; 84145; 84439; 84443; 84484; 85025; 85610; 85730; 87040; 93005; 93017; 93306; 93458; 94640; 99285; A9500; C1893; J0456; J0461; J1650; J1940; J2250; J2270; J2405; J2785; J2930; J3010; J3480; J7030; J7040; J7050; J7613; J7644; Q9966; Q9967